=== PATIENT | female | born 1960 | race Caucasian/White ===

== ENCOUNTER → 2017-03-27 | Outpatient (CLI) | payer OTHER ==
--- NOTE | 2017-03-28 09:22 | RAD ---
DATE: 03/28/2017 EXAM: 2-D SCREENING BILATERAL HISTORY: Routine screening COMPARISON: Previous study from 2014 This study was interpreted with the benefit of Computerized Aided Detection (CAD). FINDINGS: 2-D imaging was performed in CC and MLO projections. Breast density category C: The breasts are heterogeneously dense, which may obscure small masses. The skin and nipples are within normal limits. No suspicious calcifications, spiculated masses or areas of architectural distortion. IMPRESSION: No mammographic evidence of malignancy. No significant change when compared to previous study from 2013. BI-RADS CATEGORY: 2 BENIGN FINDING(S) RECOMMENDED FOLLOW-UP: 12M 12 MONTH FOLLOW-UP PQRS compliance statement: Patient information was entered into a reminder system with a target due date 03/28/2018 for the next mammogram. Mammography is a sensitive method for finding small breast cancers, but it does not detect them all and is not a substitute for careful clinical examination. A negative mammogram does not negate a clinically suspicious finding and should not result in delay in biopsying a clinically suspicious abnormality. "Our facility is accredited by the [employer] Mammography [employer]."
== END | disposition home or self-care (01) ==
LOC: MAMMO 15:22
PROVIDERS: ATTEND Obstetrics & Gynecology
DX: Z12.31 Encounter for screening mammogram for malignant neoplasm of breast (principal)
CPT/HCPCS: G0202; 77067

== ENCOUNTER → 2018-07-16 | Outpatient (CLI) | payer OTHER ==
--- NOTE | 2018-07-16 14:39 | RAD ---
DATE: 07/16/2018 EXAM: 2-D and 3-D SCREENING BILATERAL HISTORY: Routine screening COMPARISON: Previous mammogram from 2017. This study was interpreted with the benefit of Computerized Aided Detection (CAD). FINDINGS: Breast density category C: The breasts are heterogeneously dense, which may obscure small masses. The skin and nipples are within normal limits. No suspicious calcifications, spiculated masses or areas of architectural distortion. IMPRESSION: No mammographic evidence of malignancy. No significant change when compared to previous study from 2017. BI-RADS CATEGORY: 2 BENIGN FINDING(S) RECOMMENDED FOLLOW-UP: 12M 12 MONTH FOLLOW-UP PQRS compliance statement: Patient information was entered into a reminder system with a target due date for the next mammogram. Mammography is a sensitive method for finding small breast cancers, but it does not detect them all and is not a substitute for careful clinical examination. A negative mammogram does not negate a clinically suspicious finding and should not result in delay in biopsying a clinically suspicious abnormality. "Our facility is accredited by the [employer] Mammography [employer]."
== END | disposition home or self-care (01) ==
LOC: MAMMO 10:37
PROVIDERS: ATTEND Obstetrics & Gynecology
DX: Z12.31 Encounter for screening mammogram for malignant neoplasm of breast (principal)
CPT/HCPCS: 77063; 77067